=== PATIENT | female | born 1975 ===

== ENCOUNTER 2018-08-12 15:03 | Outpatient (CLI) | payer OTHER ==
[~2018-08-12] VITALS: Ht 160 cm; Wt 54.4 kg
== END 2018-08-12 15:20 | disposition home or self-care (01) ==
LOC: OFIC 805 15:03
DX: J30.89 Other allergic rhinitis (principal); R09.81 Nasal congestion

== ENCOUNTER 2023-04-25 05:35 | Day surgery (SDC) | payer OTHER ==
[2023-04-19 10:51] LABS: URINE APPEARANCE Clear; URINE BILIRRUBIN Negative (NEGATIVE); URINE BLOOD Negative; URINE COLOR Yellow; URINE GLUCOSE Negative (NEGATIVE); URINE LEUKOCYTE Negative; URINE NITRATE Negative; URINE PROTEIN Negative (NEGATIVE); URINE UROBILINOGEN 0.2 E.U./dl
[2023-04-19 10:58] LABS: HEMATOCRIT 32.6 % (36.0-45.00); HEMOGLOBIN 10.3 g/dL (12.0-15.00); MEAN CORPUSCULAR HEMOGLOBIN 22.1 pg (27.00-32.0); MEAN CORPUSCULAR HGB CONC 31.5 g/dl (32.0-36.0); PLATELET COUNT 321 K/uL (150-450); RED BLOOD COUNT 4.65 M/uL (4.00-6.00)
[2023-04-19 11:05] LABS: URINE BACTERIA FEW; URINE EPITHELIAL CELLS 0-4 /HPF; URINE RBC 0-3 /HPF; URINE WBC 0-2 /hpf; URINE YEAST FEW /hpf
[2023-04-19 11:15] LABS: PARTIAL THROMBOPLASTIN TIME 28.9 SECONDS (22.0-34.0); PROTHROMBIN TIME 10.5 SECONDS (9.0-11.5)
[~2023-04-25 05:35] MED LIST: RIZATRIPTAN10 MG PO
== END 2023-04-25 17:45 | disposition home or self-care (01) ==
LOC: CIR.AMB 05:35
PROVIDERS: ATTEND Obstetrics & Gynecology
DX: N84.0 Polyp of corpus uteri (principal); N93.8 Other specified abnormal uterine and vaginal bleeding